=== PATIENT | male | born 1955 | race Caucasian/White ===

== ENCOUNTER 2018-02-19 12:50 | Emergency (ER) | END 2018-02-19 16:48 | disposition home or self-care (01) ==

== ENCOUNTER 2018-03-27 13:46 | Emergency (ER) | END 2018-03-27 15:15 | disposition home or self-care (01) ==

== ENCOUNTER 2018-04-08 10:36 | Emergency (ER) | END 2018-04-08 13:18 | disposition home or self-care (01) ==

== ENCOUNTER 2018-04-15 11:00 | Emergency (ER) | END 2018-04-15 14:06 | disposition home or self-care (01) ==

== ENCOUNTER 2018-05-25 15:37 | Emergency (ER) | END 2018-05-25 17:17 | disposition home or self-care (01) ==

== ENCOUNTER 2018-06-13 12:11 | Emergency (ER) | END 2018-06-13 15:20 | disposition home or self-care (01) ==

== ENCOUNTER 2018-06-22 11:26 | Emergency (ER) | END 2018-06-22 12:05 | disposition home or self-care (01) ==

== ENCOUNTER 2018-06-24 15:11 | Emergency (ER) | END 2018-06-24 17:42 | disposition home or self-care (01) ==

== ENCOUNTER 2018-07-16 12:46 | Emergency (ER) | END 2018-07-16 14:35 | disposition home or self-care (01) ==

== ENCOUNTER 2018-07-20 14:30 | Emergency (ER) | END 2018-07-20 16:46 | disposition home or self-care (01) ==

== ENCOUNTER 2018-07-22 13:00 | Emergency (ER) | END 2018-07-22 13:50 | disposition home or self-care (01) ==

== ENCOUNTER 2018-08-06 13:51 | Emergency (ER) | END 2018-08-06 16:15 | disposition left against medical advice (07) ==